=== PATIENT | female | born 1960 | race Caucasian/White ===

== ENCOUNTER 2016-08-10 18:08 | Emergency (ER) | payer OTHER ==
--- NOTE | ~2016-08-10 | CR142 ---
[facility] A Service of [facility] & [facility] RADIOLOGY TEXT RESULTS PATIENT: EDGARDO OROZCO LOCATION: CFTX : 60 UNIT #: [id number] AGE: [address]: Lori Mayorga SEX: F ORDER DR: [id number] [facility] [address] [facility] [facility] [place], [place] [address] [id number] E MR#: [id number] Acc #: [id number] NAME: EDGARDO OROZCO : 1960 SEX: F STUDY DATE/TIME: 08/10/2016 18:10 UNIT: [facility] ROOM: STUDY DESCRIPTION: CR Hand Min 3 Views Rt Attending Physician: Lori Mayorga Pa-C Ordering Physician: Lori Mayorga Pa-C Primary Care Physician: Michelle Gates M.D. MEDICAL IMAGING REPORT This report is preliminary unless electronic signature is present EXAM Right hand 3 views, 08/10/2016 HISTORY Right hand pain. Pain in right thumb radiating up to right wrist after a box fell on right hand last night. FINDINGS AP, lateral, and oblique projections of the hand show good mineralization with normal carpal, metacarpal, and phalangeal anatomy without indication of fracture, dislocation, or soft tissue radiopaque foreign body. IMPRESSION Normal right hand. Dictated by... Elkin James M.D. THIS IS AN ELECTRONICALLY VERIFIED REPORT Elkin James M.D. at 08/11/2016 10:55 AM SAVANAH/kassy TD: 08/11/2016 08:37 JOB #: [id number] MEDICAL IMAGING REPORT COPY
[~2016-08-10 18:08] MED LIST: AMITRIPTYLINE H25 MG PO; AMLODIPINE BESYL5 MG PO; B COMPLEX1 TAB PO; CALCIUM CITRAT1 EAC4 PO; CENTRUM SILVER PO; CYPROHEPTADINE H4 MG PO; DEXAMETHASONE PO; INDOMETHACIN75 MG PO; LYRICA75 MG PO; NAPROSYN500 MG PO; OMEPRAZOLE20 M2 PO; RIZATRIPTAN5 MG PO; SIMVASTATIN10 MG PO; TUMS500 M1 PO; ULTRAM PO; VITAMIN C500 M1 PO
== END 2016-08-10 19:01 | disposition home or self-care (01) ==
LOC: CFTX 18:08
DX: S66.411A Strain of intrinsic muscle, fascia and tendon of right thumb at wrist and hand level, initial encounter (principal); F17.210 Nicotine dependence, cigarettes, uncomplicated; W20.8XXA Other cause of strike by thrown, projected or falling object, initial encounter; Y92.009 Unspecified place in unspecified non-institutional (private) residence as the place of occurrence of the external cause; F32.9 Major depressive disorder, single episode, unspecified
CPT/HCPCS: 73130; 99283